=== PATIENT | female | born 1990 ===

== ENCOUNTER 2025-01-24 09:03 | Emergency (ER) | payer OTHER ==
[2025-01-24] MEDS: Ondansetron 4 MG/2 ML SDV IVPUSH ONE (09:22)
[2025-01-24] MEDS ORDERED: Naloxone 0.4 MG/ML SDV IVPUSH PRN (09:31)
[2025-01-24] MEDS: Sodium Chloride 0.9% 1,000 ML IV ONE ×2 (09:36→11:37)
[2025-01-24] MEDS: Morphine 2 MG/ML SYRINGE IVPUSH ONE (09:37)
[2025-01-24] MEDS: Ondansetron 4 MG/2 ML SDV ONE (09:38)
[2025-01-24 09:49] LABS: ALBUMIN 4.3 g/dL (3.4-5.0); ANION GAP 14.8 meq/L (7-15); BASOPHILS ABSOLUTE AUTO 0.03 K/uL (0.00-0.20); BASOPHILS PERCENT AUTO 0.4 % (0.0-2.0); BILIRUBIN TOTAL 0.6 mg/dL (0.2-1.0); CALCIUM 8.8 mg/dL (8.5-10.1); CARBON DIOXIDE,CO2 22.2 mmol/L (21.0-32.0); CREATININE 0.78 mg/dL (0.51-1.17); EOSINOPHILS ABSOLUTE AUTO 0.07 K/uL (0.00-0.50); EST CRCL DRUG DOSING (CG) 85.69 mL/min; HEMATOCRIT 42.7 % (34.0-46.0); HEMOGLOBIN 14.5 g/dL (11.7-15.5); LYMPHOCYTES ABSOLUTE AUTO 0.43 K/uL (0.50-3.50); LYMPHOCYTES PERCENT AUTO 6.2 % (10.0-50.0); MEAN CORPUSCULAR HEMOGLOBIN 28.4 pg (28.2-33.3); MEAN CORPUSCULAR VOLUME 83.7 fL (84.0-98.0); MONOCYTES ABSOLUTE AUTO 0.84 K/uL (0.00-1.00); NEUTROPHILS ABSOLUTE AUTO 5.62 K/uL (1.40-7.00); NEUTROPHILS PERCENT AUTO 80.4 % (45.0-80.0); PLATELET COUNT,PLT 260 K/uL (150-350); POTASSIUM,K 3.6 mmol/L (3.5-5.1); PROTEIN TOTAL,TP 7.7 g/dL (6.4-8.2); RED CELL DISTRIBUTION WIDTH 12.3 % (11.2-14.1)
[2025-01-24] MEDS: HYDROmorphone 0.5 MG/0.5 ML Syringe IVPUSH ONE ×2 (09:52→11:28)
[2025-01-24 09:56] LABS: LACTIC ACID 0.9 mmol/L (0.4-2.0)
[2025-01-24 10:18] LABS: APPEARANCE,URINE CLEAR; BILIRUBIN,URINE NEGATIVE (NEGATIVE); COLOR,URINE YELLOW; GLUCOSE,URINE NEGATIVE (NEGATIVE); KETONES,URINE NEGATIVE (NEGATIVE); LEUKOCYTE ESTERASE,URINE NEGATIVE (NEGATIVE); NITRITE,URINE NEGATIVE (NEGATIVE); OCCULT BLOOD,URINE NEGATIVE (NEGATIVE); PROTEIN,URINE NEGATIVE (NEGATIVE)
[2025-01-24] MEDS: Ketorolac 15 MG/ML SDV IVPUSH ONE (11:01)
[2025-01-24] MEDS: Sodium Chloride 0.9% 10 ML Syringe FLUSH PRN (11:03)
[2025-01-24] MEDS: diphenhydrAMINE 50 MG/ML SDV IVPUSH ONE (11:09)
[2025-01-24] MEDS: diphenhydrAMINE 50 MG/ML SDV ONE (11:27)
[2025-01-24] MEDS: Promethazine 25 MG/ML SDV IM ONE (11:31)
[2025-01-24] MEDS: Iopamidol 612 MG/ML 100 ML Bottle IVPUSH STA (11:35)
[2025-01-24] MEDS: Take Home: Promethazine 25 MG, 4 Tab Pack PO ONE (12:33)
[2025-01-24] MEDS: Take Home: oxyCODONE HCl 5 MG Tab, 5 Tab Pack PO ONE (12:33)
== END 2025-01-24 12:55 | disposition home or self-care (01) ==
LOC: LL.ED 09:03 → EDBD 09:03 → LL.ED 12:55
DX: J10.1 Influenza due to other identified influenza virus with other respiratory manifestations (principal); E86.0 Dehydration; Z79.899 Other long term (current) drug therapy; Z88.0 Allergy status to penicillin; Z91.040 Latex allergy status; Z88.6 Allergy status to analgesic agent; Z88.1 Allergy status to other antibiotic agents
CPT/HCPCS: 36415; 74177; 80053; 81003; 83605; 83735; 85025; 87428-QW; 93005; 96361; 96372; 96374; 96375; 96376; 99284-25; A9270-GY; J1200; J1885; J2270; J2405; J2550; J7030; Q9967

== ENCOUNTER 2025-02-25 17:12 | Emergency (ER) | payer OTHER ==
[2025-02-25 17:43] LABS: BASOPHILS ABSOLUTE AUTO 0.04 K/uL (0.00-0.20); BASOPHILS PERCENT AUTO 0.3 % (0.0-2.0); EOSINOPHILS ABSOLUTE AUTO 0.17 K/uL (0.00-0.50); EOSINOPHILS PERCENT AUTO 1.4 % (0.0-5.0); HEMATOCRIT 38.9 % (34.0-46.0); HEMOGLOBIN 12.8 g/dL (11.7-15.5); IMMATURE GRAN ABSOLUTE AUTO 0.01 10^3/uL (0.00-0.04); IMMATURE GRAN PERCENT AUTO 0.1 % (0.0-0.4); LYMPHOCYTES ABSOLUTE AUTO 1.75 K/uL (0.50-3.50); LYMPHOCYTES PERCENT AUTO 14.3 % (10.0-50.0); MEAN CORPUSCULAR HEMOGLOBIN 28.5 pg (28.2-33.3); MEAN CORPUSCULAR HGB CONC 32.9 g/dL (31.7-36.0); MEAN CORPUSCULAR VOLUME 86.6 fL (84.0-98.0); MONOCYTES ABSOLUTE AUTO 1.32 K/uL (0.00-1.00); MONOCYTES PERCENT AUTO 10.8 % (2.0-14.0); NEUTROPHILS ABSOLUTE AUTO 8.96 K/uL (1.40-7.00); NEUTROPHILS PERCENT AUTO 73.1 % (45.0-80.0); PLATELET COUNT,PLT 324 K/uL (150-350); RED BLOOD CELL COUNT 4.49 M/uL (3.77-5.09); RED CELL DISTRIBUTION WIDTH 13.2 % (11.2-14.1); WHITE BLOOD CELL COUNT,WBC 12.3 K/uL (4.0-10.2)
[2025-02-25 18:18] LABS: ALANINE AMINOTRANSFERASE,ALT 15 U/L (12-78); ALBUMIN 3.4 g/dL (3.4-5.0); ALKALINE PHOSPHATASE 117 IU/L (46-116); ASPARTATE AMNIOTRANSFERASE,AST 12 U/L (15-37); BILIRUBIN TOTAL 0.9 mg/dL (0.2-1.0); BLOOD UREA NITROGEN,BUN 8 mg/dL (7-18); CALCIUM 8.8 mg/dL (8.5-10.1); CHLORIDE,CL 104 mmol/L (98-107); CREATININE 0.68 mg/dL (0.51-1.17); GLUCOSE RANDOM 105 mg/dL (70-99); LIPASE 20 U/L (16-77); POTASSIUM,K 3.5 mmol/L (3.5-5.1); PROTEIN TOTAL,TP 7.2 g/dL (6.4-8.2); SODIUM,NA 138 mmol/L (136-145)
[2025-02-25 18:19] LABS: ESTIMATED GFR 116 mL/min (>=60)
[2025-02-25] MEDS ORDERED: Sodium Chloride 0.9% 10 ML Syringe FLUSH PRN (18:21)
[2025-02-25 18:24] LABS: INR 1.1 (0.9-1.1); PROTHROMBIN TIME 11.3 SEC (9.0-11.1); PTT,PARTIAL THROMBOPLSTIN TIME 26.4 SEC (23.8-34.4)
[2025-02-25] MEDS: Iopamidol 755 Mg/ML 100 ML Bottle IVPUSH ONE (19:03)
[2025-02-25] MEDS: Take Home: Doxycycline 100 MG Cap, 4 Cap Pack PO ONE (20:39)
== END 2025-02-25 20:40 | disposition home or self-care (01) ==
LOC: LL.ED 17:12
DX: T81.41XA Infection following a procedure, superficial incisional surgical site, initial encounter (principal); Z91.040 Latex allergy status; Z88.0 Allergy status to penicillin; Z88.6 Allergy status to analgesic agent; Z88.8 Allergy status to other drugs, medicaments and biological substances; Z79.899 Other long term (current) drug therapy
CPT/HCPCS: 36415; 71275; 80053; 83690; 85025; 85379; 85610; 85730; 99283; 99285; A9270-GY; Q9967